=== PATIENT | male | born 1975 | race African-American/Black ===

== ENCOUNTER 2020-07-07 11:28 | Emergency (ER) | payer BC, OTHER ==
--- NOTE | 2020-07-07 12:52 | ER ---
Nurse's Notes [facility] Name: Zachary Mcgraw Age: 45 yrs Sex: Male : 1975 Arrival Date: 07/07/2020 Time: 11:34 Bed 22 Private MD: Diagnosis: Unspecified sprain of left thumb Presentation: 07/07 11:43 Chief complaint: Patient states: "I jammed my thumb a month or two ago. It doesn't hurt ss too much, but I just want to make sure it isn't broken.". Coronavirus screen: Client denies travel out of the [place] in the last 14 days. Ebola Screen: Patient denies exposure to infectious person. Patient denies travel to an Ebola-affected area in the 21 days before illness onset. Initial Sepsis Screen: Does the patient meet any 2 criteria? No. Patient's initial sepsis screen is negative. Does the patient have a suspected source of infection? No. Patient's initial sepsis screen is negative. Risk Assessment: Do you want to hurt yourself or someone else? Patient reports no desire to harm self or others. Onset of symptoms is unknown. 11:43 Method Of Arrival: Ambulatory ss 11:43 Acuity: CHANI 4 ss Historical: - Allergies: 11:45 No Known Allergies; ss - Immunization history:: Adult Immunizations up to date. - Social history:: Smoking status: Patient denies any tobacco usage or history of. Screenin:10 Abuse screen: Denies threats or abuse. Denies injuries from another. Nutritional ss screening: No deficits noted. Tuberculosis screening: Never had TB. Fall Risk None identified. Assessment: 12:10 Pain: Complains of pain in palmar aspect of proximal phalanx of left thumb Pain ss currently is 3 out of 10 on a pain scale. Pain began 1-2 months ago Is continuous. Neuro: Level of Consciousness is awake, alert, obeys commands, Oriented to person, place, time, situation. Cardiovascular: Pulses are palpable in right radial artery and left radial artery. Respiratory: Airway is patent Respiratory effort is even, unlabored. Derm: Skin is intact, is healthy with good turgor, Skin is dry, Skin is pink, warm \\T\\ dry. Musculoskeletal: Circulation, motion, and sensation intact. Range of motion: intact in all extremities, Swelling absent. Vital Signs: 11:43 BP 139 / 70; Pulse 74; Resp 16; Temp 98.3(TE); Pulse Ox 99% on R/A; Weight 95.25 kg; Height 5 ft. 8 in. (172.72 cm); Pain 3/10; 11:43 Body Mass Index 31.93 (95.25 kg, 172.72 cm) ED Course: 11:34 Patient arrived in ED. am2 11:45 Triage completed. ss 11:45 Arm band placed on left wrist. ss 12:07 Neftali Zazueta PA is PHCP. jr8 12:07 Oh Lopez MD is Attending Physician. jr8 12:10 Ev Caal, TYE is Primary Nurse. ss 12:10 Patient has correct armband on for positive identification. ss 12:41 Hand Left 3 View In Process Unspecified. EDMS 12:50 Tae Olsen MD is Referral Physician. jr8 13:00 No provider procedures requiring assistance completed. Patient did not have IV access aa5 during this emergency room visit. Administered Medications: No medications were administered Outcome: 12:51 Discharge ordered by MD. jr8 13:00 Discharged to home ambulatory. aa5 13:00 Condition: good 13:00 Discharge instructions given to patient, Instructed on discharge instructions, follow up and referral plans. Demonstrated understanding of instructions, follow-up care. 13:00 Patient left the ED. aa5 Signatures: Dispatcher [employer] EDAlecia Gramajo RN RN aa5 Ev Caal RN RN Neftali Zazueta PA PA jr8 Nolvia Galeas am
--- NOTE | 2020-07-07 12:52 | EDPHYS ---
Physician Documentation [facility] Name: Zachary Mcgraw Age: 45 yrs Sex: Male : 1975 Arrival Date: 07/07/2020 Time: 11:34 Bed 22 Private MD: ED Physician Oh Lopez HPI: 07/07 12:13 This 45 yrs old Black Male presents to ER via Ambulatory with complaints of Thumb jr8 Injury. 12:13 Onset: The symptoms/episode began/occurred acutely, 1 month(s) ago. Modifying factors: jr8 The symptoms are alleviated by nothing, the symptoms are aggravated by movement. Associated signs and symptoms: The patient has no apparent associated signs or symptoms. Severity of symptoms: At their worst the symptoms were mild, in the emergency department the symptoms have improved, markedly. The patient has not experienced similar symptoms in the past. The patient has not recently seen a physician. Patient stated that he injured the thumb about a month ago. Cannot remember how but felt as if he jammed it. Still has been hurting but has markedly improved. Wanted imaging . Historical: - Allergies: 11:45 No Known Allergies; ss - Immunization history:: Adult Immunizations up to date. - Social history:: Smoking status: Patient denies any tobacco usage or history of. ROS: 12:13 Eyes: Negative for injury, pain, redness, and discharge, ENT: Negative for injury, jr8 pain, and discharge, Neck: Negative for injury, pain, and swelling, Cardiovascular: Negative for chest pain, palpitations, and edema, Respiratory: Negative for shortness of breath, cough, wheezing, and pleuritic chest pain, Abdomen/GI: Negative for abdominal pain, nausea, vomiting, diarrhea, and constipation, Back: Negative for injury and pain, Skin: Negative for injury, rash, and discoloration, Neuro: Negative for headache, weakness, numbness, tingling, and seizure. 12:13 MS/extremity: Positive for pain, of the left thumb. Exam: 12:13 Eyes: Pupils equal round and reactive to light, extra-ocular motions intact. Lids and jr8 lashes normal. Conjunctiva and sclera are non-icteric and not injected. Cornea within normal limits. Periorbital areas with no swelling, redness, or edema. ENT: Nares patent. No nasal discharge, no septal abnormalities noted. Tympanic membranes are normal and external auditory canals are clear. Oropharynx with no redness, swelling, or masses, exudates, or evidence of obstruction, uvula midline. Mucous membranes moist. Neck: Trachea midline, no thyromegaly or masses palpated, and no cervical lymphadenopathy. Supple, full range of motion without nuchal rigidity, or vertebral point tenderness. No Meningismus. Cardiovascular: Regular rate and rhythm with a normal S1 and S2. No gallops, murmurs, or rubs. Normal PMI, no JVD. No pulse deficits. Respiratory: Lungs have equal breath sounds bilaterally, clear to auscultation and percussion. No rales, rhonchi or wheezes noted. No increased work of breathing, no retractions or nasal flaring. Abdomen/GI: Soft, non-tender, with normal bowel sounds. No distension or tympany. No guarding or rebound. No evidence of tenderness throughout. Back: No spinal tenderness. No costovertebral tenderness. Full range of motion. Skin: Warm, dry with normal turgor. Normal color with no rashes, no lesions, and no evidence of cellulitis. MS/ Extremity: Pulses equal, no cyanosis. Neurovascular intact. Full, normal range of motion. Neuro: Awake and alert, GCS 15, oriented to person, place, time, and situation. Cranial nerves II-XII grossly intact. Motor strength 5/5 in all extremities. Sensory grossly intact. Cerebellar exam normal. Normal gait. Vital Signs: 11:43 BP 139 / 70; Pulse 74; Resp 16; Temp 98.3(TE); Pulse Ox 99% on R/A; Weight 95.25 kg; ss Height 5 ft. 8 in. (172.72 cm); Pain 3/10; 11:43 Body Mass Index 31.93 (95.25 kg, 172.72 cm) ss MDM: 12:08 Patient medically screened. jr8 12:50 Data reviewed: vital signs, nurses notes, radiologic studies, plain films, and as a jr8 result, I will discharge patient. Data interpreted: Pulse oximetry: on room air is 99 %. Interpretation: normal. Counseling: I had a detailed discussion with the patient and/or guardian regarding: the historical points, exam findings, and any diagnostic results supporting the discharge/admit diagnosis, radiology results, the need for outpatient follow up, a family practitioner, to return to the emergency department if symptoms worsen or persist or if there are any questions or concerns that arise at home. 07/07 12:36 Order name: Hand Left 3 View EDMS Administered Medications: No medications were administered Disposition: 13:04 Co-signature as Attending Physician, Oh Lopez MD. rn Disposition: 07/07/20 12:51 Discharged to Home. Impression: Unspecified sprain of left thumb. - Condition is Stable. - Discharge Instructions: Thumb Sprain. - Medication Reconciliation Form, Thank You Letter, Antibiotic Education, Prescription Opioid Use form. - Follow up: Tae Olsen MD; When: 2 - 3 days; Reason: Recheck today's complaints, Continuance of care, Re-evaluation by your physician. - Problem is new. - Symptoms have improved. Signatures: Dispatcher [employer] [facility] Oh Lopez MD MD rn Calderon, Audri, RN RN aa5 Ev Caal RN RN Neftali Zazueta PA PA jr8 Corrections: (The following items were deleted from the chart) 12:36 12:13 Hand Left 2 View+RAD.RAD.BRZ ordered. [facility] EDWI 13:00 12:51 07/07/2020 12:51 Discharged to Home. Impression: Unspecified sprain of left aa5 thumb. Condition is Stable. Forms are Medication Reconciliation Form, Thank You Letter, Antibiotic Education, Prescription Opioid Use. Follow up: Tae Olsen; When: 2 - 3 days; Reason: Recheck today's complaints, Continuance of care, Re-evaluation by your physician. Problem is new. Symptoms have improved. jr8
--- NOTE | 2020-07-07 13:00 | RAD REPORT ---
EXAM DESCRIPTION: RAD - Hand Left 3 View - 07/07/2020 12:48 pm CLINICAL HISTORY: PAINpatient details nontraumatic pain at the first MCP joint COMPARISON: None. FINDINGS: No fracture, dislocation or periosteal reaction noted. Slight joint space narrowing at the first MCP joint. Second- fifth MCP joints and the IP joints of the hand are normally spaced. There i s minimal spurring along the base of the first proximal phalanx on 1 of the views. No erosive change seen. There are no periarticular masses or soft tissue calcifications seen. Carpal bones are unremarkable. Radiocarpal joint space within normal range. IMPRESSION: Patient does demonstrate minimal or very early degenerative change at the first MCP join t. No acute or destructive bone finding.
[2020-07-07 13:08] VITALS: BP 139/70; TEMP 98.3; O2SAT 99
== END 2020-07-07 13:00 | disposition home or self-care (01) ==
LOC: ER 11:28
DX: S63.602A Unspecified sprain of left thumb, initial encounter (principal)
CPT/HCPCS: 99283